=== PATIENT | female | born 1990 | race Caucasian/White ===

== ENCOUNTER 2025-06-07 09:01 | Outpatient (CLI) | payer OTHER, SELFPAY ==
[2025-06-07 14:52] LABS: Influenza A, PCR Not Detected (NotDetected); Influenza B, PCR Not Detected (NotDetected)
[2025-06-07 19:00] LABS: Coronavirus 19, PCR Detected (NotDetected)
== END 2025-06-07 23:59 ==
LOC: LAB.DROPOF 06-11 09:02
PROVIDERS: PCP Nurse Practitioner Family; Visit Provider Nurse Practitioner
DX: J06.9 Acute upper respiratory infection, unspecified (principal)
CPT/HCPCS: 87631